=== PATIENT | male | born 1945 | race Caucasian/White ===

== ENCOUNTER → 2017-04-18 | Outpatient (CLI) | payer OTHER | LOC: FIMAGING 14:43 | PROVIDERS: ATTEND Orthopaedic Surgery | DX: Z01.818 Encounter for other preprocedural examination (principal); M17.12 Unilateral primary osteoarthritis, left knee ==

== ENCOUNTER 2017-05-02 07:15 | Observation (INO) | payer OTHER ==
[2017-05-09] MEDS ORDERED: TRANEXAMIC ACID 3,000 MG in NS 50 ML IRR ONE (06:00)
[2017-05-09] MEDS ORDERED: ROPIVACAINE 0.2% 80 MG, EPINEPHrine 0.2 MG, KETOROLAC TROMETHAMINE 30 MG in BAG 0 ML IU ONE (06:00)
[2017-05-09] MEDS ORDERED: VANCOMYCIN 1 GM VIAL ONE (08:07)
[2017-05-09] MEDS ORDERED: TRANEXAMIC ACID 3,000 MG/50 ML BAG IRR ONE (08:07)
[2017-05-09] MEDS ORDERED: FAMOTIDINE 20 MG TAB PO ONE (13:29)
[2017-05-09] MEDS ORDERED: DEXAMETHASONE 4 MG/ML VIAL IVP ONE (13:29)
[2017-05-09] MEDS ORDERED: ACETAMINOPHEN 325 MG TAB PO ONE (13:29)
[2017-05-09] MEDS ORDERED: ceFAZolin 2 GM/DEXTROSE 100 ML IV ONE (13:29)
[2017-05-09] MEDS ORDERED: LR 1,000 ML IV ONE (13:40)
[2017-05-09] MEDS ORDERED: CEFAZOLIN 2 GM/DEXTROSE/100 ML BAG IV ONE (13:55)
--- NOTE | 2017-05-09 14:39 | PDHPUP ---
History & Physical Update H&P update statement: This history and physical update is based on an assessment of the patient which was completed after admission or registration (within 24 hours), but prior to the surgery/procedure. H&P update: H&P reviewed & patient examined, no change in patient's condition since H&P completed
[2017-05-09] MEDS ORDERED: MIDAZOLAM 2 MG/2 ML VIAL ONE (15:17)
[2017-05-09] MEDS ORDERED: MIDAZOLAM 2 MG/2 ML VIAL IVP ONE (15:20)
[2017-05-09] MEDS ORDERED: LIDOCAINE 2% 5 ML SDV ONE (15:21)
--- NOTE | 2017-05-09 15:21 | PDANEPAE ---
ANE History of Present Illness knee arthroplasty ANE Past Medical History - Cardiovascular History Hx Hypertension: Yes Hx Arrhythmias: No Hx Chest Pain: No Hx Coronary Artery / Peripheral Vascular Disease: No Hx CHF / Valvular Disease: No Hx Palpitations: No Cardiovascular History Comment: DIZZINESS ON OCCASION - Pulmonary History Hx COPD: No Hx Asthma/Reactive Airway Disease: No Hx Recent Upper Respiratory Infection: No Hx Oxygen in Use at Home: No Hx Sleep Apnea: No Sleep Apnea Screening Result - Last Documented: Negative - Neurologic History Hx Cerebrovascular Accident: No Hx Seizures: No Hx Dementia: No - Endocrine History Hx Diabetes: No - Renal History Hx Renal Disorders: No Renal History Comment: BPH - Liver History Hx Hepatic Disorders: No - Neurological & Psychiatric Hx Hx Neurological and Psychiatric Disorders: No Neurological / Psychiatric History Comment: INSOMNIA-uses herbal supplement - Cancer History Hx Cancer: No Cancer History Comment: MELONOMA L THIGH 2009 - Congenital Disorder History Hx Congenital Disorders: No - GI History Hx Gastrointestinal Disorders: Yes Gastrointestinal History Comment: GERD. SULLIVAN'S ESOPHAGUS-hx of - Other Health History Other Health History: SEBHORRHEIC DERMATITIS SCALP- occ. OSTEOARTHRITIS-L knee - Chronic Pain History Chronic Pain: No - Surgical History Prior Surgeries: Total R hip . 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 R ELBOW BURSA SAC REMOVED 2009. R MENISCUS KNEE 2008. L ROTATOR CUFF SHOULDER 2004 ANE Review of Systems - Exercise capacity METS (RN): 4 METS ANE Patient History - Allergies Allergies/Adverse Reactions: No Allergies [NKDA] Allergy (Verified 03/05/17 15:11) - Home Medications Home medications: home medication list seen and reviewed Home Medications: Aspirin EC [Aspirin EC 81 mg (*)] 81 mg PO MOWEFR 02/28/17 [Last Taken 3 Weeks Ago] Atorvastatin Calcium [Lipitor 10 mg (*)] 10 mg PO DAILY 02/28/17 [Last Taken 22:00] Cholecalciferol Vit D3 [Vitamin D3 (*)] 5,000 units PO DAILY 02/28/17 [Last Taken 3 Weeks Ago] Herbals/Supplements -Info Only 1 ea PO DAILY 02/28/17 [Last Taken 3 Weeks Ago] Multivitamins [Multivitamin (*)] 1 each PO DAILY 02/28/17 [Last Taken 3 Weeks Ago] Pantoprazole Sodium [Protonix] 20 mg PO DAILY 02/28/17 [Last Taken 05/09/17 07: 00] Tadalafil [Cialis] 5 mg PO DAILY 02/28/17 [Last Taken 2 Days Ago] Tadalafil [Cialis] 15 mg PO AD PRN 02/28/17 [Last Taken 2 Days Ago] - NPO status NPO Since - Liquids (Date): 05/08/17 NPO Since - Liquids (Time): 11:30 NPO Since - Solids (Date): 05/08/17 NPO Since - Solids (Time): 20:30 - Smoking Hx Smoking Status: Never smoked - Family Anes Hx Family Hx Anesthesia Complications: NONE ANE Labs/Vital Signs - Vital Signs Blood Pressure: 171/88 Heart Rate: 66 Respiratory Rate: 16 O2 Sat (%): 93 Height: 182.88 cm Weight: 80.9 kg ANE Physical Exam - Airway Mallampati Score: Class 2 Mouth exam: normal dental/mouth exam - Pulmonary Pulmonary: no respiratory distress - Cardiovascular Cardiovascular: regular rate and rhythym - ASA Status ASA Status: II ANE Anesthesia Plan Anesthesia Plan: spinal Regional Anesthesia: adductor canal FNB
[2017-05-09] MEDS ORDERED: PROPOFOL/EMULSION 500 MG/50 ML BOTTLE IV ONE ×2 (15:22→16:01)
[2017-05-09] MEDS ORDERED: NALOXONE HCL 0.4 MG/ML INJ IVP PRN (15:43)
[2017-05-09] MEDS ORDERED: MEPERIDINE 25 MG/ML SYR IVP PRN (15:43)
[2017-05-09] MEDS ORDERED: LR 500 ML IV PRN (15:43)
[2017-05-09] MEDS ORDERED: HYDROmorphONE/DILAUDID 1 MG/ML SYR IVP PRN (15:43)
[2017-05-09] MEDS ORDERED: fentaNYL 100 MCG/2 ML INJ IVP PRN (15:43)
[2017-05-09] MEDS ORDERED: ONDANSETRON 4 MG/2 ML VIAL IVP PRN ×2 (15:43→16:49)
[2017-05-09] MEDS ORDERED: ROPIVACAINE HCL 150 MG/30 ML INJ ONE (16:28)
--- NOTE | 2017-05-09 16:40 | POSTOPPROG ---
Post Op Note Date of Operation: 05/09/17 Surgeon: Lissette Castellon Screen Tacker: Galileo Mullen PAc Anesthesiologist: Brandan Anesthesia: Spinal Pre-op Diagnosis: left knee djd Post-op Diagnosis: same Indication: pain Procedure: L med partial knee with computer betty and robotic asist Findings: djd knee medial Inf/Abcess present in the surg proc area at time of surgery?: No EBL: 50-100
--- NOTE | 2017-05-09 16:48 | POSTOPPROG ---
Post Op Note Date of Operation: 05/09/17 Surgeon: Lissette Castellon Thread Milling Machine Set Up Operator: blanka bernabe Anesthesiologist: danielle Anesthesia: IV Sedation, Spinal Pre-op Diagnosis: left knee medial OA Post-op Diagnosis: left knee medial OA Indication: failed conservative therapies Procedure: L partial knee arthroplasty, robot assisted Inf/Abcess present in the surg proc area at time of surgery?: No EBL: 50-100
[2017-05-09] MEDS ORDERED: PROMETHAZINE HCL 25 MG SUPPR PR PRN (16:49)
[2017-05-09] MEDS ORDERED: DIPHENOXYLATE/ATROPINE LOMOTIL 1 TAB PO PRN (16:49)
[2017-05-09] MEDS ORDERED: CYCLOBENZAPRINE 10 MG TAB PO PRN (16:49)
[2017-05-09] MEDS ORDERED: LACTULOSE 20 GM/30 ML UDCUP PO PRN (16:49)
[2017-05-09] MEDS ORDERED: MAGNESIUM HYDROXIDE 30 ML UDCUP PO PRN (16:49)
[2017-05-09] MEDS ORDERED: diphenhydrAMINE 25 MG CAP PO PRN (16:49)
[2017-05-09] MEDS ORDERED: METOCLOPRAMIDE 10 MG/2 ML VIAL IVP PRN (16:49)
[2017-05-09] MEDS ORDERED: BISACODYL 10 MG SUPP PR PRN (16:49)
[2017-05-09] MEDS ORDERED: oxyCODONE IR 5 MG TAB PO PRN (16:49)
[2017-05-09] MEDS ORDERED: POLYETHYLENE GLYCOL 3350 17 GM PKT PO PRN (16:49)
[2017-05-09] MEDS ORDERED: ONDANSETRON DISINTEGRATING 4 MG TAB PO PRN (16:49)
[2017-05-09] MEDS ORDERED: TEMAZEPAM 15 MG CAP PO PRN (16:49)
[2017-05-09] MEDS ORDERED: PROMETHAZINE HCL 25 MG/ML INJ IVP PRN (16:49)
[2017-05-09] MEDS ORDERED: LR 1,000 ML IV SCH (17:00)
--- NOTE | 2017-05-09 17:02 | POSTANESTH ---
Post Anesthetic Evaluation Cardiovascular Status: Normal, Stable Respiratory Status: Normal, Stable Level of Consciousness/Mental Status: Can Participate in Eval Pain Control: Adequate, Prn Tx Ordered Nausea/Vomiting Control: Adequate, Prn Tx Ordered Complications Possibly Related to Anesthesia: None Noted
[2017-05-09] MEDS: ACETAMINOPHEN 325 MG TAB PO SCH ×2 (18:15→23:04)
[2017-05-09] MEDS: ceFAZolin 2 GM/DEXTROSE 100 ML IV SCH (20:52)
[2017-05-09] MEDS: FAMOTIDINE 20 MG TAB PO SCH (20:55)
[2017-05-09] MEDS: SENNOSIDES/DOCUSATE SODIUM TAB PO SCH (20:55)
[2017-05-09] MEDS: ASPIRIN 325 MG TAB PO SCH (21:26)
[2017-05-10 04:46] VITALS: TEMP 97.8
[2017-05-10 05:18] LABS: HEMATOCRIT 40.2 % (40.0-51.0); HEMOGLOBIN 13.5 g/dL (13.7-17.5)
[2017-05-10] MEDS: ACETAMINOPHEN 325 MG TAB PO SCH (05:57)
[2017-05-10] MEDS: ceFAZolin 2 GM/DEXTROSE 100 ML IV SCH (05:58)
[2017-05-10 07:44] VITALS: BP 147/79; PULSE 60; RESP 14; O2SAT 95
--- NOTE | 2017-05-10 08:11 | SOAPPROG ---
SOAP Progress Note Assessment/Plan: Assessment: Patient is doing well POD 1 s/p L PKA, medial alexx Pain management: pain is well controlled on oral pain meds. VTE ppx: recommend aspirin daily for 3 weeks, cont JERRY and SCDs Anemia: level is expected initially postop. Asymptomatic. Continue to monitor D/c planning: d/c to home today pending release from PT Plan: 05/10/17 08:11 Objective: Vital Signs Temp Pulse Resp BP Pulse Ox 36.6 C 60 14 147/79 H 95 05/10/17 07:44 05/10/17 07:44 05/10/17 07:44 05/10/17 07:44 05/10/17 07:44 Laboratory Results 05/10/17 04:29 05/09/17 05/10/17 05/11/17 05:59 05:59 05:59 Intake Total 1165 550 Output Total 1305 1000 Balance -140 -450 ICD10 Worksheet Patient Problems: Problems Problem Status Onset Primary localized osteoarthritis of right hip Acute
[2017-05-10] MEDS: ASPIRIN 325 MG TAB PO SCH (08:45)
[2017-05-10] MEDS: SENNOSIDES/DOCUSATE SODIUM TAB PO SCH (08:46)
[2017-05-10] MEDS: FAMOTIDINE 20 MG TAB PO SCH (08:46)
[2017-05-10] MEDS ORDERED: PANTOPRAZOLE SODIUM 40 MG TAB PO SCH (09:00)
[2017-05-10] MEDS ORDERED: NON-FORMULARY NEW DRUG (Pantoprazole Sodium [Protonix] 20 MG) PO SCH (09:00)
[2017-05-10] MEDS ORDERED: ATORVASTATIN CALCIUM 10 MG TAB PO SCH (09:00)
--- NOTE | 2017-05-10 11:49 | GOP ---
[f rep st] OPERATIVE REPORT DATE OF OPERATION: 05/09/2017 SURGEON: Chip Castellon MD FUR STRETCHER: Albert Mullen, VANNA ANESTHESIA: Spinal. PREOPERATIVE DIAGNOSIS: Left knee osteoarthritis. POSTOPERATIVE DIAGNOSIS: Left knee osteoarthritis. PROCEDURE PERFORMED: CHRISTA uni-knee. Left medial compartment partial knee replacement with computer navigation and robotic assist. FINDINGS: Severe medial compartment osteoarthritis. ESTIMATED BLOOD LOSS: 30 cc. INDICATIONS: This is a 71-year-old male with progressive pain of the left knee unresponsive to conservative care. Risks and benefits of surgical intervention were explained in detail. DESCRIPTION OF PROCEDURE: The patient was brought to the operating room and placed on the table in supine position. Spinal anesthesia was induced without difficulty. A pneumatic tourniquet was applied about the left proximal thigh and the leg was prepped and draped in sterile fashion. Attention was turned first to the distal aspect of the left femur. At 3 cm proximal to the lateral rise of the femur, 2 percutaneous half pins were placed for fixation of the femoral array. In a similar fashion, 2 pins were placed anterolateral on the tibia for fixation of the tibial array. External land marking and registration of the hip center was performed without difficulty. After exsanguination by elevation, the tourniquet was inflated to 250 mmHg. Incision was made from the tibial tuberosity to the superior pole of the patella. Dissection was carried out through the subcutaneous tissue to the deep fascia using Bovie electrocautery for hemostasis. Medial parapatellar arthrotomy was carried out to the superior pole of the patella. The medial collateral ligament was elevated and the infrapatellar fat pad was resected. Internal femoral and tibial registration was carried out without difficulty and the femoral and tibial checkpoints were placed and verified for accuracy. Attention was turned to the femur. The foot print for the size 6 femoral component was cut with the 6 mm bur using the [employer] robotic system and verified for accuracy against the CT based plan. The hole was cut for the femoral post. In a similar fashion, the 6 mm bur was used to cut the foot print for the size 6 tibial component using the [employer] system and verified for accuracy against the CT based plan. Attention was turned to the posterior aspect of the knee and remnants of the medial meniscus were excised. The posterior capsule was injected with ropivacaine, epinephrine and Toradol. Trial reduction was carried out and there was excellent range of motion, alignment and stability using the size 6 femoral component and the size 6 tibial component, 6 x 8 mm polyethylene. All trials were then removed. The joint was thoroughly irrigated and carefully dried. One package of cement and 1 gram of vancomycin were mixed in the vacuum mixer and placed on the fixation surfaces of all components. The components were implanted and all excess cement was thoroughly removed. Implant placement was verified against the CT view plan and found to be excellent. The tourniquet was deflated and all bleeders were coagulated. The wound was thoroughly irrigated and closed using interrupted sutures of 2-0 Vicryl for the joint capsule. The subcu was closed with 3-0 Vicryl and the skin with 4-0 Monocryl. Dermabond and Steri-Strips were applied, followed by a compressive dressing. The patient was then moved from the operating room to the recovery room in good condition, having tolerated the procedure well. CASE CLASSIFICATION: Clean. /[id number]/MODL MTDD
--- NOTE | 2017-05-14 03:46 | GDS ---
[f rep st] DISCHARGE SUMMARY ADMISSION DIAGNOSIS: Left knee medial compartment osteoarthritis. DISCHARGE DIAGNOSIS: Left knee medial compartment osteoarthritis. PROCEDURE: Left knee partial medial compartment arthroplasty, robot-assisted. VTE PROPHYLAXIS: Full-strength aspirin x21 days. BRIEF DESCRIPTION OF HOSPITAL STAY: Patient was admitted for an elective joint arthroplasty. The p atient tolerated the procedure well and has passed physical therapy. The patient was given appropri ate antibiotic prophylaxis and venous thromboembolism prophylaxis. The patient's pain was well cont rolled on oral pain medication, patient was holding down food, and had urinated. Decision was made to discharge the patient. The patient was given post-operative prescriptions pre-operatively. PLAN: Please follow up with Dr. Castellon as scheduled on May 28, 2017. /[id number]/MODL
== END 2017-05-10 11:11 | disposition home or self-care (01) ==
LOC: F3N 05-09 13:06 → INTOOBSV 05-09 13:06 → F3N 05-09 18:02
PROVIDERS: ADMIT Orthopaedic Surgery; ATTEND Orthopaedic Surgery
PROC: 8E0YXBZ Computer Assisted Procedure of Lower Extremity (ICD-10-PCS; principal; 2017-05-09 15:15)
PROC: 0SRD0JZ Replacement of Left Knee Joint with Synthetic Substitute, Open Approach (ICD-10-PCS; principal; 2017-05-09 15:15)
DX: M17.12 Unilateral primary osteoarthritis, left knee (principal); M25.562 Pain in left knee
CPT/HCPCS: 20985; 27446; 73560; 97161; 97165; C1713; C1776; G8978; G8979; G8980; G8987; G8988; G8989; J0171; J0690; J1100; J1885; J2250; J2704; J2795; J3370

== ENCOUNTER → 2017-09-24 | Outpatient (CLI) | payer OTHER | LOC: FIMAGING 15:42 | PROVIDERS: ATTEND Dermatology | DX: R19.09 Other intra-abdominal and pelvic swelling, mass and lump (principal); Z85.820 Personal history of malignant melanoma of skin ==

== ENCOUNTER → 2018-04-02 | Outpatient (CLI) | payer OTHER | LOC: BHFA 10:45 | PROVIDERS: ATTEND Internal Medicine Cardiovascular Disease | DX: I10 Essential (primary) hypertension (principal); I25.10 Atherosclerotic heart disease of native coronary artery without angina pectoris; I77.810 Thoracic aortic ectasia ==

== ENCOUNTER → 2018-05-08 | Outpatient (CLI) | payer OTHER | DX: I10 Essential (primary) hypertension (principal) ==

== ENCOUNTER → 2018-05-21 | Outpatient (CLI) | payer OTHER | LOC: BMCIMAGING 10:39 | PROVIDERS: ATTEND Internal Medicine | DX: Z13.820 Encounter for screening for osteoporosis (principal); M85.89 Other specified disorders of bone density and structure, multiple sites ==

== ENCOUNTER → 2018-05-22 | Outpatient (CLI) | payer OTHER ==
[~2018-05-22] MED LIST: IOPAMIDOL (ISOVUE 370) 100 ML BTL IV ONE
== END ==
LOC: FIMAGING 09:19
PROVIDERS: ATTEND Internal Medicine Cardiovascular Disease
DX: I25.10 Atherosclerotic heart disease of native coronary artery without angina pectoris (principal); I77.810 Thoracic aortic ectasia; J98.6 Disorders of diaphragm; N28.1 Cyst of kidney, acquired
CPT/HCPCS: 71275; Q9967

== ENCOUNTER → 2018-06-12 | Outpatient (CLI) | payer OTHER | LOC: BHLMT 10:00 | PROVIDERS: ATTEND Internal Medicine Cardiovascular Disease | DX: I77.810 Thoracic aortic ectasia (principal) | CPT/HCPCS: 76775-PO ==